=== PATIENT | female | born 1955 | race Caucasian/White ===

== ENCOUNTER 2024-10-27 08:24 | Outpatient (CLI) | payer OTHER, SELFPAY ==
--- NOTE | ~2024-10-27 | XR_ITS ---
EXAM/ PROCEDURE: XR hand BI arthritis min 3V - 10/27/2024 8:55 CDT HISTORY: 69 years old Female with MULT JT PAIN COMPARISON: None available TECHNIQUE: 7 view(s) FINDINGS/ IMPRESSION: There are no fractures or dislocations.Joint space narrowing, subchondral sclerosis, subchondral cyst formation and osteophyte formation, compatible with moderate osteoarthritis. Reviewed, dictated and finalized at location A.
--- NOTE | ~2024-10-27 | XR_ITS ---
EXAM/ PROCEDURE: XR hip LT min 2V - 10/27/2024 8:55 CDT HISTORY: 69 years old Female with MULTIPLE JOINT PAIN COMPARISON: None available TECHNIQUE: Two view(s) FINDINGS/ IMPRESSION: There are no fractures or dislocations.Joint space narrowing, subchondral sclerosis, subchondral cyst formation and osteophyte formation, compatible with moderate osteoarthritis. Reviewed, dictated and finalized at location A.
--- NOTE | ~2024-10-27 | XR_ITS ---
EXAM/ PROCEDURE: XR hip RT min 2V - 10/27/2024 8:55 CDT HISTORY: 69 years old Female with MULTIPLE JOINT PAIN COMPARISON: None available TECHNIQUE: Two view(s) FINDINGS/ IMPRESSION: There are no fractures or dislocations.Joint space narrowing, subchondral sclerosis, subchondral cyst formation and osteophyte formation, compatible with moderate osteoarthritis. Reviewed, dictated and finalized at location A.
== END 2024-10-27 08:25 | disposition home or self-care (01) ==
PROVIDERS: PCP Family Medicine; Visit Provider Internal Medicine Rheumatology
DX: M25.59 Pain in other specified joint (principal)
CPT/HCPCS: 73130; 73502